=== PATIENT | female | born 1945 | race Caucasian/White ===

== ENCOUNTER 2022-03-25 21:09 | Emergency (ER) | payer MEDICARE, BC ==
[2022-03-25 21:41] LABS: CHLORIDE,CL 103 mEq/L (98-106); SODIUM,NA 136 mEq/L (136-145)
[2022-03-25 21:44] LABS: ESTIMATED GFR 47 mL/min (>=60)
[2022-03-25] MEDS ORDERED: Nirmatrelvir/Ritonavir 300 MG/100 MG Dose Pack PO SCH (23:30)
== END 2022-03-25 23:55 | disposition home or self-care (01) ==
LOC: CC.ED 21:09
DX: U07.1 COVID-19 (principal); R07.81 Pleurodynia
CPT/HCPCS: 36415; 71046; 80053; 85025; 86140; 99284; 99285; U0002